=== PATIENT | male | born 1955 | race Caucasian/White ===

== ENCOUNTER 2023-06-20 22:02 | Emergency (ER) | payer BC, MEDICARE ==
[~2023-06-20] VITALS: Ht 180.3 cm; Wt 82.2 kg
[2023-06-20 22:03] VITALS: BP 153/79; TEMP 98.6; O2SAT 95
[2023-06-21] MEDS ORDERED: NEOSPORIN OINT 0.9 GM PKT TOP ONE (00:35)
[2023-06-21] MEDS ORDERED: LIDOCAINE 2% MDV 20ML VIAL SC ONE (00:35)
[2023-06-21] MEDS ORDERED: BOOSTRIX VACCINE (TETANUS/DIPHTH/ACEL. PERTUSSIS) 0.5ML SYR IM.IMMUN ONE (00:35)
== END 2023-06-21 01:27 | disposition home or self-care (01) ==
LOC: M ED 22:02
DX: S61.214A Laceration without foreign body of right ring finger without damage to nail, initial encounter (principal); W26.8XXA Contact with other sharp object(s), not elsewhere classified, initial encounter; Y92.009 Unspecified place in unspecified non-institutional (private) residence as the place of occurrence of the external cause; Y93.89 Activity, other specified; Y99.9 Unspecified external cause status; Z23 Encounter for immunization